=== PATIENT | female | born 1970 | race Caucasian/White ===

== ENCOUNTER 2022-09-28 14:30 | Emergency (ER) | payer BC ==
[~2022-09-28] VITALS: Ht 172.7 cm; Wt 86.2 kg
[2022-09-28 14:56] VITALS: BP_SYST 132; PULSE 89; RESP 13; TEMP 97.6; O2SAT 96
[2022-09-28] MEDS ORDERED: NACL 0.9% 1,000 ML IV ONE (15:15)
[2022-09-28 15:31] LABS: CLARITY/URINE CLEAR (CLEAR); COLOR,URINE YELLOW (YELLOW); GLUCOSE,URINE NEGATIVE (NEGATIVE); KETONES,URINE NEGATIVE (NEGATIVE); LEUKOCYTE ESTERASE ,URINE 1+ (NEGATIVE); NITRITE, URINE NEGATIVE (NEGATIVE); PH,URINE 6.5 (5.0-8.0); PROTEIN URINE NEGATIVE (NEGATIVE); UROBILINOGEN,URINE 0.2 (0.2-1.0)
[2022-09-28 15:35] LABS: BASOPHILS % (AUTO) 0.3 % (0.0-2.0); EOSINOPHILS # (AUTO) 0.1 K/uL (0.0-0.4); EOSINOPHILS % (AUTO) 1.4 % (0.0-4.0); HEMATOCRIT 40.4 % (36-48); HEMOGLOBIN 13.5 g/dL (12.0-16.0); LYMPHOCYTES # (AUTO) 1.4 K/uL (1.0-5.5); LYMPHOCYTES % (AUTO) 23.9 % (20.5-51.5); MEAN CORPUSCULAR HEMOGLOBIN 29 pg (27-31); MEAN CORPUSCULAR HGB CONC 33 % (32-36); MEAN CORPUSCULAR VOLUME 87 fL (79.0-98.0); MONOCYTES # (AUTO) 0.3 K/uL (0.0-1.0); MONOCYTES % (AUTO) 5.2 % (1.7-9.3); NEUTROPHILS # (AUTO) 3.9 K/uL (1.8-7.7); NEUTROPHILS % (AUTO) 69.2 % (40.0-70.0); PLATELET COUNT (AUTO) 207 K/uL (130-430); RED BLOOD CELL COUNT(AUTO) 4.66 MIL/uL (4.2-6.2); RED CELL DISTRIBUTION WIDTH 13.6 % (9.0-15.0); WHITE BLOOD COUNT (AUTO) 5.7 K/uL (4.8-10.8)
[2022-09-28 15:41] LABS: CREATININE 0.69 mg/dL (0.55-1.30); POTASSIUM 3.7 mmol/L (3.5-5.1)
[2022-09-28 15:42] LABS: BLOOD, URINE TRACE (NEGATIVE)
[2022-09-28 15:43] LABS: BILIRUBIN,URINE 1+ (NEGATIVE); RBC,URINE 0-3 /HPF (0-3)
[2022-09-28 15:44] LABS: BACTERIA,URINE FEW /HPF (None Seen); MUCUS,URINE None Seen /LPF (None Seen)
[2022-09-28 15:46] LABS: ALBUMIN 3.4 g/dL (3.4-4.8); TOTAL BILIRUBIN 0.4 mg/dL (0.0-1.0); TOTAL PROTEIN, SERUM 6.9 g/dL (6.4-8.3)
[2022-09-28] MEDS ORDERED: cefTRIAXone 1 GM in D5W 50 ML IV ONE (16:15)
[2022-09-28] MEDS ORDERED: cefTRIAXone 1 GM VIAL ONE (16:33)
[2022-09-28] MEDS ORDERED: NITR-85 PO (16:34)
[2022-09-28 16:59] VITALS: BP_SYST 135; PULSE 74; RESP 18; TEMP 97.1; O2SAT 97
== END 2022-09-28 17:00 | disposition home or self-care (01) ==
LOC: SED 14:30
DX: N39.0 Urinary tract infection, site not specified (principal); R10.33 Periumbilical pain; R11.0 Nausea; J45.909 Unspecified asthma, uncomplicated; Z88.6 Allergy status to analgesic agent; Z79.899 Other long term (current) drug therapy
CPT/HCPCS: 99285; 74176; 96365; 96361; 80053; 81000; 83690; 85025; 87086; 36415; 76376; J0696; J7060; J7030